=== PATIENT | female | born 1985 | race Caucasian/White ===

== ENCOUNTER 2018-12-07 18:43 | Emergency (ER) | payer OTHER ==
[2018-12-07] MEDS ORDERED: KETOROLAC 30 MG INJ IM (20:16)
[2018-12-07] MEDS: IBUPROFEN 600 MG TAB PO (20:40)
== END 2018-12-07 22:30 | disposition home or self-care (01) ==
LOC: FTE 18:43
DX: J06.9 Acute upper respiratory infection, unspecified (principal)
CPT/HCPCS: 71045; 93005; 99283-25